=== PATIENT | male | born 1950 | race Caucasian/White ===

== ENCOUNTER 2016-11-22 00:54 | Day surgery (SDC) | payer MEDICARE ==
[2016-11-22] VITALS (13 sets, daily range): BP systolic 122–145; BP diastolic 77–93; PULSE 65–74; RESP 12–23; O2SAT 91–95
[~2016-11-22] VITALS: Ht 180.3 cm; Wt 108.0 kg
[~2016-11-22 00:54] MED LIST: AMLO5TAB2 PO; CALC-434 PO; CLOP75TA28 PO; LOSA100T29 PO; MELA1TAB11 PO; METF-777 PO; SERT50TA9 PO; SIMV80TA4 PO; UBID100C25 PO
[2016-11-22] MEDS ORDERED: Succinylcholine Chloride 20 mg/mL 5 mL Inj ONE (00:55)
[2016-11-22] MEDS ORDERED: Propofol 10,000 mCg/mL 20 mL Inj ONE (00:55)
[2016-11-22] MEDS ORDERED: Dexamethasone 4 mg/mL Inj ONE (00:55)
[2016-11-22] MEDS ORDERED: Ondansetron 2 mg/mL 2 mL Inj ONE (00:55)
--- NOTE | 2016-11-22 08:18 | NUR ---
patient admitted for heart cath with dr Landaverde following exertional chest pain and abnormal stress test. He is pain free currently, accompanied by his Farzaneh.
[2016-11-22] MEDS ORDERED: OMEG-38 PO (08:26)
[2016-11-22] MEDS ORDERED: Heparin 5,000 Units/500 mL NS Premix IV ONE ×2 (08:57→09:00)
[2016-11-22] MEDS ORDERED: Heparin 1,000 Units/500 mL NS Premix IV ONE (08:57)
[2016-11-22] MEDS ORDERED: fentaNYL-PF 50 mCg/mL 2 mL Inj ONE (09:19)
[2016-11-22] MEDS ORDERED: Heparin 1,000 Unit/mL 10 mL Inj ONE (09:40)
[2016-11-22] MEDS ORDERED: Nitroglycerin 50,000 mcg/250 mL D5W Premix IV ONE (09:40)
--- NOTE | 2016-11-22 14:51 | NUR ---
discharge instructions reviewed with patient and .Right groin remains intact, he is discharged ambulatory with his to drive him home.
--- NOTE | 2016-11-22 17:26 | CS94 ---
[address] [address] DIAGNOSTIC CARDIAC CATHETERIZATION PATIENT: CRISPIN CORTEZ : 1950 MR#: [id number] ADMIT: 11/22/2016 JOB ID: [id number] SERVICE DATE: 11/22/2016 PROCEDURES PERFORMED: Left heart catheterization and coronary angiography. INDICATIONS: A 66-year-old man with episodes of chest tightness at very high levels of exertion with an abnormal stress test suggesting an anteroapical defect which is small but because of this he presents for further assessment by cardiac catheterization. DESCRIPTION OF PROCEDURE: Informed consent was obtained. The patient was brought to catheterization laboratory. Bilateral groins were prepped and draped in usual sterile fashion. The right femoral artery was anesthetized with lidocaine using micropuncture kit and modified Seldinger technique. Access was obtained and a 5-Irish sheath was advanced. Next, a 5-Irish JL4 catheter was advanced over a wire and used to cannulate the left coronary artery and angiography was obtained. This catheter was removed and a 5-Irish JR4 catheter was advanced over a wire and used to cannulate the right coronary artery and standard angiographic views obtained. This catheter was then removed and a 5-Irish angled pigtail catheter was advanced to the left under fluoroscopic guidance. Left ventricular pressure tracings were obtained and following pullback, aortic pressure tracings were obtained. The case was ended. Angiography of the right femoral access site was obtained prior to achieving hemostasis with manual compression and no complications. FINDINGS: CORONARIES: 1. The left main: This has minor luminal irregularities. 2. Circumflex artery: This vessel centrally gives rise to obtuse marginal branch which supplies at least an intermediate distribution. It has evidence for mild luminal irregularities. 3. Left anterior descending artery: This vessel has mild luminal regularities throughout. No obstructive lesions appreciated. There is a diagonal that comes off which has a somewhat eccentric stenosis in its mid segment which is estimated in the range of 80%. The flow distal is TENISHA 2-3. The vessel is approximately 2 mm in diameter, however. 4. Right coronary artery. This vessel has minor luminal irregularities. Left ventricular pressure (post contrast) is 15-20 mm. No gradient on pullback. IMPRESSION: Evidence for no obstructive disease affecting the left anterior descending, circumflex artery or right coronary artery. There is evidence of a stenosis affecting a diagonal branch. However, the vessel is approximately 2 mm in diameter and prior to any consideration of intervention on this vessel which might result in a very small stent which has a high risk of restenosis, we will consider medical management. [place]
== END 2016-11-22 23:59 | disposition home or self-care (01) ==
LOC: SOUO 00:54
PROVIDERS: ATTEND Internal Medicine
DX: I25.10 Atherosclerotic heart disease of native coronary artery without angina pectoris (principal); I10 Essential (primary) hypertension; E11.9 Type 2 diabetes mellitus without complications; Z79.84 Long term (current) use of oral hypoglycemic drugs; Z82.49 Family history of ischemic heart disease and other diseases of the circulatory system; Z86.73 Personal history of transient ischemic attack (TIA), and cerebral infarction without residual deficits; E78.5 Hyperlipidemia, unspecified
CPT/HCPCS: 93458; 99152; 99153; C1769; J0330; J1100; J1200; J1644; J2060; J2250; J2405; J3010; Q9967